=== PATIENT | female | born 1970 | race Caucasian/White ===

== ENCOUNTER 2018-09-14 09:41 | Emergency (ER) | payer SELFPAY ==
[~2018-09-14] VITALS: Ht 160 cm; Wt 83.0 kg
[2018-09-14 09:48] VITALS: BP 143/85
--- NOTE | 2018-09-14 10:24 | NUR ---
BED BUG EXTERMINATOR: PT TO ROOM FROM LOBBY VIA W/C
--- NOTE | 2018-09-14 11:02 | NUR ---
urine specimens collected and sent to lab. pt moved to room 4.
[2018-09-14 11:53] LABS: CULTURE INDICATED? YES; MICROSCOPIC INDICATED
== END 2018-09-14 12:11 | disposition home or self-care (01) ==
LOC: ED 12:08
DX: J02.0 Streptococcal pharyngitis (principal); N30.00 Acute cystitis without hematuria; I10 Essential (primary) hypertension; Z86.73 Personal history of transient ischemic attack (TIA), and cerebral infarction without residual deficits; Z88.0 Allergy status to penicillin
CPT/HCPCS: 81001; 87077; 87086; 87186; 87880; 99283

== ENCOUNTER 2019-11-27 12:29 | Inpatient (IN) | payer MEDICAID, OTHER ==
[~2019-11-27] VITALS: Ht 170.2 cm; Wt 85.2 kg
--- NOTE | 2019-11-27 12:53 | NUR ---
BRAZER FURNACE: PT TO ROOM FROM TRIAGE
--- NOTE | 2019-11-27 13:01 | NUR ---
pt to ed w sister from home w/ c/o can't see out of L eye, L arm/L leg numb/can't move well. pt anxious. told yest at [facility] that sx were d/t etoh, sister brought her in today bc "somethings not right". bgl in triage. plan labs. pt to ct. answers questions apropr a&ox4. as
--- NOTE | 2019-11-27 13:21 | NUR ---
back from ct wisam in room for eval piv est labs drawn and sent report to task marito velez. as
--- NOTE | 2019-11-27 13:26 | NUR ---
BREAK RN: COMMODE PLACED AT BEDSIDE. PT EDUCATED ON NEED TO PROVIDE URINE SAMPLE.
[2019-11-27] MEDS ORDERED: hydrALAzine 20 MG/ML, 1ML IV ONE (13:30)
[2019-11-27] MEDS ORDERED: SODIUM CHLORIDE FLUSH 10ML SYR IVF ONE (13:30)
--- NOTE | 2019-11-27 13:30 | NUR ---
BREAK RN: VIVIANE WELDON FROM PHARMACY.
[2019-11-27 13:36] LABS: BASOPHILS # (AUTO) 0.02 x10^3/uL (0-0.1); BASOPHILS % (AUTO) 0 % (0-1); EOSINOPHILS # (AUTO) 0.08 x10^3/uL (0-0.4); EOSINOPHILS % (AUTO) 1 % (1-7); LYMPHOCYTES # (AUTO) 1.26 x10^3/uL (1-3.4); LYMPHOCYTES % (AUTO) 21 % (22-44); MD NO; MEAN CORPUSCULAR HEMOGLOBIN 31.3 pg (27.0-34.8); MEAN CORPUSCULAR HGB CONC 32.9 g/dL (32.4-35.8); MEAN CORPUSCULAR VOLUME 95.1 fL (80-100); MEAN PLATELET VOLUME 8.4 fL (7.4-10.4); MONOCYTES % (AUTO) 7 % (2-9); NEUTROPHILS # (AUTO) 4.21 x10^3/uL (1.8-6.8); NEUTROPHILS % (AUTO) 71 % (42-75); PLATELET COUNT 248 x10^3/uL (130-400); RED BLOOD COUNT 4.96 x10^6/uL (3.82-5.3); RED CELL DISTRIBUTION WIDTH 13.2 % (9.6-15.2)
--- NOTE | 2019-11-27 13:39 | NUR ---
BREAK RN: TELEPHONE CALL FROM PHARMACY. HYDRALIZINE BACKORDERED. TO SWITCH ORDER TO [facility]ET[facility].
[2019-11-27 13:41] LABS: ALBUMIN 3.7 g/dL (3.4-5.0); ANION GAP 7 mmol/L (5-15); CALCIUM 8.9 mg/dL (8.5-10.1); CHLORIDE 112 mmol/L (98-107); CREATININE 0.82 mg/dL (0.55-1.02)
[2019-11-27] MEDS ORDERED: LABETALOL 20 MG/4 ML ONE (13:41)
[2019-11-27 13:45] LABS: TROPONIN I < 0.015 ng/mL (0.000-0.045)
[2019-11-27 13:53] LABS: INTERNATIONAL NORMALIZED RATIO 0.9 (0.93-1.1); PROTHROMBIN TIME 9.3 Seconds (9.6-11.5)
[2019-11-27] MEDS ORDERED: LABETALOL 20 MG/4 ML IV ONE (14:00)
--- NOTE | 2019-11-27 14:18 | NUR ---
pt was drowsing, easily rousable. when asked about pos blood alcohol replies "this morning i woke up and drank like an alcoholic but i'm not an alcoholic. " denies regularly drinking. unable to void. vss. as
--- NOTE | 2019-11-27 14:38 | NUR ---
REPORT FROM TINO KLEIN. PT CARE RESPONSIBLITIES ASSUMED.
--- NOTE | 2019-11-27 14:50 | NUR ---
pt yelling to go home. asked to wait for mri, sister at bedside. report to libby devi. as
[2019-11-27] MEDS ORDERED: ASPIRIN 81 MG TABLET CHEW PO ONE (16:30)
[2019-11-27] MEDS ORDERED: THIAMINE 100MG TABLET ONE (16:42)
[2019-11-27] MEDS ORDERED: LORazepam 2 MG/ML, 1ML ONE (16:42)
[2019-11-27] MEDS ORDERED: ASPIRIN 81 MG TABLET CHEW ONE (16:42)
[2019-11-27] MEDS: LORazepam 2 MG/ML, 1ML IVPush PRN ×2 (16:49→17:21)
--- NOTE | 2019-11-27 16:56 | NUR ---
AND HOSPITALIST AT BEDSIDE. PT DENIES ANY NEEDS. CALL LIGHT IN REACH.
[2019-11-27] MEDS ORDERED: THIAMINE 100MG TABLET PO ONE (17:00)
[2019-11-27] MEDS ORDERED: ACETAMINOPHEN 650 MG/20.3 ML UDC PO PRN (17:30)
[2019-11-27] MEDS ORDERED: DOCUSATE 100 MG CAPSULE PO PRN (17:30)
[2019-11-27] MEDS ORDERED: POLYETHYLENE GLYCOL 17 GM PACKET PO PRN (17:30)
[2019-11-27] MEDS ORDERED: ONDANSETRON 2MG/ML, 2ML IVPush PRN (17:30)
[2019-11-27] MEDS ORDERED: ONDANSETRON 4 MG TABLET PO PRN (17:30)
[2019-11-27] MEDS ORDERED: ENALAPRILAT 1.25 MG/ML, 2ML IV PRN (17:30)
--- NOTE | 2019-11-27 17:57 | NUR ---
AT BEDSIDE. PT VERBALLY AGGRESSIVE, YELLING AT HIM TO BRING HER A BEER. REFUSING. PT VOLATILE AND ANGRY, CONTINUES TO DEMAND THAT SOMEONE BRING HER ALCOHOL WHILE SHE IS IN THE HOSPITAL. LEFT AT THIS TIME. PT EDUCATED ON RULES OF THE HOSPITAL AND PROHIBITION OF ALCOHOL. PT VERBALIZES UNDERSTANDING, BUT CONTINUES TO DEMAND ALCOHOL. PT TO IMAGING AT THIS TIME.
--- NOTE | 2019-11-27 18:07 | NUR ---
REPORT TO TINO VAZQUEZ.
[2019-11-27] MEDS ORDERED: OMNIPAQUE 350 MG/ML, 75ML BOTTLE ONE (18:14)
--- NOTE | 2019-11-27 18:55 | NUR ---
PT RESTING IN BED, AWAITING TRANSPORT AT THIS TIME. CALL LIGHT IN REACH.
[2019-11-27 19:24] VITALS: BP 169/102
[2019-11-27] MEDS: SODIUM CHLORIDE 0.9% 1,000 ML IV SCH (19:55)
[2019-11-27] MEDS: NICOTINE 14MG/24 HR PATCH.TD24 TD SCH (19:56)
[2019-11-27] MEDS: ATORVASTATIN 40 MG TABLET PO SCH ×2 (21:00→21:31)
[2019-11-28] VITALS (13 sets, daily range): BP systolic 153–179; BP diastolic 77–117
[2019-11-28] MEDS: SODIUM CHLORIDE 0.9% 1,000 ML IV SCH ×2 (03:42→20:05)
[2019-11-28 05:32] LABS: CHOL/HDL RATIO 5.2
--- NOTE | 2019-11-28 08:24 | NUR ---
HIGINIO VARGAS-Fall Risk Medications NOT present and NOT receiving anticoagulants. Signed: 11/28/19 at 0825 by KATHIE MONK
[2019-11-28] MEDS ORDERED: ASPIRIN 81 MG TABLET CHEW PO/NG SCH (09:00)
[2019-11-28 10:44] LABS: MICROSCOPIC NOT IND
[2019-11-28 10:57] LABS: AMPHETAMINE SCREEN, URINE Positive (Negative); BARBITURATE SCREEN, URINE Negative (Negative); BENZODIAZEPINE SCREEN, URINE Negative (Negative); CANNABINOID SCREEN, URINE Positive (Negative); COCAINE SCREEN, URINE Negative (Negative); METHADONE SCREEN, URINE Negative (Negative); OPIATE SCREEN, URINE Negative (Negative)
[2019-11-28] MEDS: NICOTINE 14MG/24 HR PATCH.TD24 TD SCH (12:31)
[2019-11-28] MEDS: ATORVASTATIN 40 MG TABLET PO SCH (20:21)
[2019-11-29 01:04] VITALS: BP 118/67
[2019-11-29 07:11] VITALS: BP 144/96
[2019-11-29] MEDS ORDERED: CLOPIDOGREL 75 MG TABLET PO SCH (09:00)
[2019-11-29] MEDS ORDERED: AMLODIPINE 5 MG TABLET PO SCH (09:00)
[2019-11-29] MEDS ORDERED: ASPIRIN 81 MG TABLET EC PO SCH (09:00)
[2019-11-29] MEDS ORDERED: CLOP75TA PO (09:17)
[2019-11-29] MEDS ORDERED: AMLO-150 PO (09:17)
[2019-11-29] MEDS ORDERED: ASPI81TA45 PO (09:17)
[2019-11-29] MEDS ORDERED: ATOR40TA78 PO (09:17)
== END 2019-11-29 09:24 | disposition left against medical advice (07) | DRG 65 ==
LOC: ED 14:09 → EDIP 17:10 → 4WST 19:08
PROVIDERS: ADMIT Family Medicine; ATTEND Family Medicine
DX: I63.49 Cerebral infarction due to embolism of other cerebral artery (principal); G81.94 Hemiplegia, unspecified affecting left nondominant side; E66.9 Obesity, unspecified; E78.5 Hyperlipidemia, unspecified; F10.20 Alcohol dependence, uncomplicated; F15.10 Other stimulant abuse, uncomplicated; F17.200 Nicotine dependence, unspecified, uncomplicated; I10 Essential (primary) hypertension; I16.0 Hypertensive urgency; R03.0 Elevated blood-pressure reading, without diagnosis of hypertension; R20.0 Anesthesia of skin; R32 Unspecified urinary incontinence; Y90.9 Presence of alcohol in blood, level not specified; R47.81 Slurred speech; Z53.29 Procedure and treatment not carried out because of patient's decision for other reasons; Z82.3 Family history of stroke; Z86.73 Personal history of transient ischemic attack (TIA), and cerebral infarction without residual deficits; Z91.19 Patient's noncompliance with other medical treatment and regimen; Z68.29 Body mass index [BMI] 29.0-29.9, adult; Z88.0 Allergy status to penicillin; R29.704 NIHSS score 4
CPT/HCPCS: 36415; 70450; 70496; 70498; 70551; 71045; 80048; 80061; 80307; 81003; 82040; 82962; 83036; 84484; 85025; 85610; 85730; 93005; 93306; G0378; Q9967; 92523-GN; J2060; J3490